=== PATIENT | male | born 1990 | race Caucasian/White ===

== ENCOUNTER 2018-12-19 13:29 | Emergency (ER) | payer BC ==
[2018-12-19] MEDS ORDERED: Ketorolac 60 MG/2 ML SDV IM ONE (13:57)
--- NOTE | 2018-12-19 14:03 | EDM.PDOC ---
ED HPI GENERAL MEDICAL PROBLEM - General Chief Complaint: Back Pain or Injury Stated Complaint: BACK AND NECK PAIN Time Seen by Provider: 12/19/18 13:30 Source of Information: Reports: Patient History Limitations: Reports: No Limitations - History of Present Illness INITIAL COMMENTS - FREE TEXT/NARRATIVE: HISTORY AND PHYSICAL: History of present illness: Patient is a 28-year-old male who presents to the ED today with generalized back pain. Patient states he did fly from [place] to [place] on Saturday. He states that he started had some back pain Saturday when he woke up. He states the back pain has been getting worse since Saturday. He rates his pain today a 9 out of 10. He states his mid back and his neck seemed to be the worst pain. He denies any injury to the area. He denies any turbulence on the flight. Patient denies fever, chills, dizziness, headache, change in vision, cough, difficulties breathing, chest pain, nausea, vomiting, diarrhea, or all other GI , , respiratory, or cardiovascular concerns. Patient does have a history of depression but denies any other health history. Review of systems: As per history of present illness and below otherwise all systems reviewed and negative. Past medical history: As per history of present illness and as reviewed below otherwise noncontributory. Surgical history: As per history of present illness and as reviewed below otherwise noncontributory. Social history: See social history for further information Family history: As per history of present illness and as reviewed below otherwise noncontributory. Physical exam: General: Patient is alert, oriented, and in no acute distress. He is sitting on exam table mildly uncomfortable appearing. HEENT: Atraumatic, normocephalic, pupils equal and reactive bilaterally, negative for conjunctival pallor or scleral icterus, mucous membranes moist, TMs normal bilaterally, throat clear, neck supple, nontender, trachea midline. No drooling or trismus noted. No meningeal signs. No hot potato voice noted. Lungs: Clear to auscultation, breath sounds equal bilaterally, chest nontender. Heart: S1S2, regular rate and rhythm without overt murmur Abdomen: Soft, nondistended, nontender. Negative for masses or hepatosplenomegaly. Negative for costovertebral tenderness. Pelvis: Stable nontender. Genitourinary: Deferred. Rectal: Deferred. Skin: Intact, warm, dry. No lesions or rashes noted. Extremities/musculoskeletal: Patient does have severe pain to palpation of the cervical spine and thoracic spine to both the spinous process as well as the surrounding muscles. Atraumatic, negative for cords or calf pain. Neurovascular unremarkable. Neuro: Awake, alert, oriented. Cranial nerves II through XII unremarkable. Cerebellum unremarkable. Motor and sensory unremarkable throughout. Exam nonfocal. Notes: Lab work is unremarkable. Thoracic spine x-ray shows minimal scoliosis of the mid thoracic spine. Cervical X-ray showed no acute findings. Patient does have a ride to home. Status has improved since injections. Supportive care measures were reviewed and discussed. Voices understanding and is agreeable to plan of care. Denies any further questions or concerns at this time. Diagnostics: CBC, CMP, UA, influenza, x-ray C-spine and thoracic spine Therapeutics: Toradol, Norflex Prescription: Flexeril Diclofenac Impression: 1. Back pain, Thoracic Plan: 1. Take medications as prescribed. 2. Alternate ibuprofen and Tylenol as directed and as discussed. 3. You can apply heat and/or ice 15 minutes on 20 minutes off as needed for discomfort. 4. Follow-up with her primary care provider in the next 1-2 days. 5. Return to the ED as needed and as discussed. Definitive disposition and diagnosis as appropriate pending reevaluation and review of above. Back Pain Score (Numeric/FACES): 8 - Related Data Allergies Allergy/AdvReac Type Severity Reaction Status Date / Time No Known Allergies Allergy Verified 12/19/18 13:45 Home Meds: Home Meds Cyclobenzaprine [Flexeril] 10 mg PO TID PRN #20 tab 12/19/18 [Rx] Diclofenac Sodium [Voltaren] 75 mg PO BIDMEALS PRN #20 tab.cr 12/19/18 [Rx] OLANZapine [Zyprexa] 5 mg PO DAILY 12/19/18 [History] Past Medical History Psychiatric History: Reports: Depression - Infectious Disease History Infectious Disease History: Reports: None Social & Family History - Family History Family Medical History: Noncontributory - Tobacco Use Smoking Status *Q: Current Every Day Smoker Years of Tobacco use: 10 Packs/Tins Daily: 1 - Caffeine Use Caffeine Use: Reports: Coffee - Recreational Drug Use Recreational Drug Use: No ED ROS GENERAL - Review of Systems Review Of Systems: ROS reveals no pertinent complaints other than HPI. ED EXAM, UPPER BACK/NECK PAIN - Physical Exam Exam: See Below (See dictation) Course - Vital Signs Last Recorded V/S: Last Vital Signs Temp 98.1 F 12/19/18 13:54 Pulse 87 12/19/18 13:54 Resp 16 12/19/18 13:54 BP 141/85 H 12/19/18 13:54 Pulse Ox 98 12/19/18 13:54 - Orders/Labs/Meds Orders: Active Orders 24 hr Category Date Time Status Cervical Spine 2V or 3V [CR] Stat Exams 12/19/18 14:03 Taken Labs: Laboratory Tests 12/19/18 12/19/18 12/19/18 Range/Units 14:12 14:12 15:12 WBC 9.35 (4.0-11.0) K/uL RBC 5.07 (4.50-5.90) M/uL Hgb 15.0 (13.0-17.0) g/dL Hct 42.0 (38.0-50.0) % MCV 82.8 (80.0-98.0) fL MCH 29.6 (27.0-32.0) pg MCHC 35.7 (31.0-37.0) g/dL RDW Std Deviation 37.8 (28.0-62.0) fl RDW Coeff of Remy 13 (11.0-15.0) % Plt Count 230 (150-400) K/uL MPV 8.90 (7.40-12.00) fL Neut % (Auto) 72.5 (48.0-80.0) % Lymph % (Auto) 20.5 (16.0-40.0) % Knott % (Auto) 5.3 (0.0-15.0) % Eos % (Auto) 1.4 (0.0-7.0) % Baso % (Auto) 0.3 (0.0-1.5) % Neut # (Auto) 6.8 H (1.4-5.7) K/uL Lymph # (Auto) 1.9 (0.6-2.4) K/uL Knott # (Auto) 0.5 (0.0-0.8) K/uL Eos # (Auto) 0.1 (0.0-0.7) K/uL Baso # (Auto) 0.0 (0.0-0.1) K/uL Nucleated RBC % 0.0 /100WBC Nucleated RBCs # 0 K/uL Sodium 137 (136-148) mmol/L Potassium 4.3 (3.5-5.1) mmol/L Chloride 102 (98-107) mmol/L Carbon Dioxide 24.5 (21.0-32.0) mmol/L BUN 16 (7.0-18.0) mg/dL Creatinine 0.8 (0.8-1.3) mg/dL Est Cr Clr Drug Dosing 138.70 mL/min Estimated GFR (MDRD) > 60.0 ml/min Glucose 102 (74-106) mg/dL Calcium 9.3 (8.5-10.1) mg/dL Total Bilirubin 0.4 (0.2-1.0) mg/dL AST 19 (15-37) IU/L ALT 30 (14-63) IU/L Alkaline Phosphatase 129 H (46-116) U/L Total Protein 7.6 (6.4-8.2) g/dL Albumin 4.2 (3.4-5.0) g/dL Globulin 3.4 (2.6-4.0) g/dL Albumin/Globulin Ratio 1.2 (0.9-1.6) Urine Color YELLOW Urine Appearance CLEAR Urine pH 7.5 (5.0-8.0) Ur Specific [place] 1.020 (1.001-1.035) Urine Protein TRACE H (NEGATIVE) mg/dL Urine Glucose (UA) NEGATIVE (NEGATIVE) mg/dL Urine Ketones NEGATIVE (NEGATIVE) mg/dL Urine Occult Blood NEGATIVE (NEGATIVE) Urine Nitrite NEGATIVE (NEGATIVE) Urine Bilirubin NEGATIVE (NEGATIVE) Urine Urobilinogen 0.2 (<2.0) EU/dL Ur Leukocyte Esterase NEGATIVE (NEGATIVE) Urine RBC 0-1 (0-2/HPF) Urine WBC 0-1 (0-5/HPF) Ur Epithelial Cells RARE (NONE-FEW) Urine Bacteria RARE (NEGATIVE) Meds: Medications Discontinued Medications Generic Name Dose Route Start Last Admin Trade Name Freq PRN Reason Stop Dose Admin Hydromorphone HCl 0.5 mg 12/19/18 15:13 Dilaudid IM 12/19/18 15:14 ONETIME ONE Ketorolac Tromethamine 60 mg 12/19/18 13:57 12/19/18 14:19 Toradol IM 12/19/18 13:58 60 mg ONETIME ONE Administration Orphenadrine Citrate 60 mg 12/19/18 13:56 12/19/18 14:20 Norflex IM 12/19/18 13:57 60 mg NOW STA Administration Departure - Departure Time of Disposition: 16:06 Disposition: Home, Self-Care 01 Clinical Impression: Thoracic back pain Qualifiers: Chronicity: acute Back pain laterality: midline Qualified Code(s): M54.6 - Pain in thoracic spine - Discharge Information Prescriptions: Cyclobenzaprine [Flexeril] 10 mg PO TID PRN #20 tab PRN Reason: Muscle Spasm Diclofenac Sodium [Voltaren] 75 mg PO BIDMEALS PRN #20 tab.cr PRN Reason: Pain Instructions: Thoracic Strain, [id number] Referrals: PCP,None [Primary Care Provider] - Forms: ED Department Discharge Additional Instructions: The following information is given to patients seen in the emergency department who are being discharged to home. This information is to outline your options for follow-up care. We provide all patients seen in our emergency department with a follow-up referral. The need for follow-up, as well as the timing and circumstances, are variable depending upon the specifics of your emergency department visit. If you don't have a primary care physician on staff, we will provide you with a referral. We always advise you to contact your personal physician following an emergency department visit to inform them of the circumstance of the visit and for follow-up with them and/or the need for any referrals to a consulting specialist. The emergency department will also refer you to a specialist when appropriate. This referral assures that you have the opportunity for follow-up care with a specialist. All of these measure are taken in an effort to provide you with optimal care, which includes your follow-up. Under all circumstances we always encourage you to contact your private physician who remains a resource for coordinating your care. When calling for follow-up care, please make the office aware that this follow-up is from your recent emergency room visit. If for any reason you are refused follow-up, please contact the [facility] Emergency Department at and asked to speak to the emergency department charge nurse. BHARAT [facility] [address] [place] [address] [facility] [address] [place] [id number] [facility] Specialty Care - Orthopedic Clinic Professional Building [address] [place] [address] 1. Take medications as prescribed. 2. Alternate ibuprofen and Tylenol as directed and as discussed. 3. You can apply heat and/or ice 15 minutes on 20 minutes off as needed for discomfort. 4. Follow-up with her primary care provider in the next 1-2 days. 5. Return to the ED as needed and as discussed. - My Orders Last 24 Hours: My Active Orders 12/19/18 14:03 Cervical Spine 2V or 3V [CR] Stat - Assessment/Plan Last 24 Hours: My Active Orders 12/19/18 14:03 Cervical Spine 2V or 3V [CR] Stat
[2018-12-19 14:43] LABS: CHLORIDE,CL 102 mmol/L (98-107); SODIUM,NA 137 mmol/L (136-148)
[2018-12-19] MEDS ORDERED: HYDROmorphone 2 MG/ML SDV IM ONE (15:13)
--- NOTE | 2018-12-19 15:42 | CR ---
INDICATION: Pain after flying. No history of injury. COMPARISON: None available. TECHNIQUE: AP and lateral views of the thoracic spine were obtained for a total of two views. FINDINGS: There is no sign of fracture or subluxation. The intervertebral discs are normal in height. The vertebral bodies are normal in height and are in anatomic alignment. There is minimal scoliosis of the mid thoracic spine convex towards the right with the apex at the T9 level. The visualized portions of the chest are normal in appearance. IMPRESSION: Minimal scoliosis of the mid thoracic spine convex towards the right. Otherwise normal thoracic spine. Dictated by Jonel Roberts MD @ Dec 19 2018 3:40PM Signed by Dr. Jonel Roberts @ Dec 19 2018 3:42PM
[2018-12-19] MEDS ORDERED: HYDROmorphone 1 MG/ML Syringe ONE (16:37)
--- NOTE | 2018-12-22 11:54 | CR ---
EXAM DATE: 12/19/18 PATIENT'S AGE: 28 Patient: SALBADOR JOYNER Facility: [facility] Site . Site : 1990 Study: XRay-Spine Cervical [id number]/[id number] 3:30:08 PM Ordering Physician: Doctor Arevalo Final Report: INDICATION: Cervical pain COMPARISON: None available. FINDINGS: The cervical spine was examined with AP, lateral and open mouth views for a total of three views. There is straightening of the cervical spine which may be the result of muscular spasm or positioning for the examination. The cervical vertebral bodies and disc spaces are normal in height. The vertebral bodies are in anatomic alignment with no sign of fracture or subluxation. The prevertebral soft tissues are normal in appearance with no sign of swelling. The airway structures are normal in appearance. IMPRESSION: Straightening of the cervical spine which may be the result of muscular spasm or positioning for the examination. Otherwise normal cervical spine three views. Dictated by Jonel Roberts MD @ Dec 19 2018 3:39PM Signed by: Jonel Roberts MD @12/19/2018 3:40:51 PM (Electronic Signature) Report Signed by Proxy. PATT
== END 2018-12-19 17:00 | disposition home or self-care (01) ==
LOC: MW.ED 13:29
DX: M54.6 Pain in thoracic spine (principal); F17.210 Nicotine dependence, cigarettes, uncomplicated; F32.9 Major depressive disorder, single episode, unspecified; Z79.899 Other long term (current) drug therapy
CPT/HCPCS: 36415; 72040; 72070; 80053; 81001; 85025; 87804; 96372; 99283; J1170; J1885; J2360